=== PATIENT | female | born 1940 | race Caucasian/White ===

== ENCOUNTER 2019-01-18 14:54 | Emergency (ER) | payer MEDICAID, MEDICARE, OTHER ==
[~2019-01-18] VITALS: Ht 149.9 cm; Wt 66.3 kg
[~2019-01-18 14:54] MED LIST: [UNRECOGNIZED DRUG - REMARK]
[2019-01-18 14:59] VITALS: Ht 149.9 cm; Wt 66.3 kg
[2019-01-18] MEDS ORDERED: KETOROLAC 30 MG INJ IM STA (15:56)
--- NOTE | 2019-01-18 16:05 | ERD ---
ER Documentation Chief Complaint Chief Complaint GROUND LEVEL FALL HIT HEAD. NO KO. AMBULATORY. NO NV NOTED. A&OX4 HPI 78-year-old female who with past medical history of hypertension and diabetes who presents status post ground-level fall. Was walking in her neighborhood when she thinks she tripped and fell. Denies any preceding dizziness or headache. No previous history of similar falls. Sustained injury to forehead with large hematoma. Also with complaint of right knee pain. Was able to get up to standing position on her own. She denies LOC or any other injuries. No complaint of back pain or neck pain. Time of examination patient with large hematoma on forehead but otherwise alert and oriented x3 with unremarkable neuro examination. Able to stand up and bear weight on both legs take more than 4 steps. ROS All systems reviewed and are negative except as per history of present illness. Medications Home Meds Active Scripts Tramadol HCl (Tramadol HCl) 50 Mg Tablet, 50 MG PO Q6, #7 TAB Prov:SERAFIN SHAH PA-C 01/18/19 Acetaminophen* (Tylophen*) 500 Mg Capsule, 1 CAP PO Q6H PRN for PAIN AND OR ELEVATED TEMP, #20 CAP Prov:SERAFIN SHAH PA-C 01/18/19 Reported Medications [Unk] No Conflict Check 01/28/13 [Unk Names] No Conflict Check 01/28/13 Allergies Allergies: Coded Allergies: Penicillins (Verified Allergy, Intermediate, face swelling, 01/18/19) PMhx/Soc History of Surgery: Yes (LAPARATOMY) Hx Neurological Disorder: No Hx Psychiatric Problems: No Hx Miscellaneous Medical Probl: No Hx Alcohol Use: No Hx Substance Use: No Hx Tobacco Use: No FmHx Family History: diabetes Physical Exam Vitals Vital Signs Date Temp Pulse Resp B/P (MAP) Pulse Ox O2 O2 Flow FiO2 Time Delivery Rate 01/18/19 97.8 66 19 153/70 99 14:59 (97) Physical Exam I have reviewed the triage vital signs. Const: Well nourished, well developed, appears stated age Eyes: PERRL, no conjunctival injection HENT: NCAT, Neck supple without meningismus, large hematoma to forehead, no bleeding, tender CV: RRR, Warm, well-perfused extremities RESP: CTAB, Unlabored respiratory effort GI: soft, non-tender, non-distended, no masses MSK: No gross deformities appreciated, no paraspinal tenderness, R knee no erythema or swelling, full ROM, SILT throughout b/l LE, 5/5 strength throughout Skin: Warm, dry. No rashes Neuro: grossly non focal, able to ambulate without issue Neuro: M/S: Alert and oriented Face: EOMI, face and pharynx with normal sensation and function Motor: Normal strength throughout Sensation: Normal sensation throughout Speech: Normal Cerebel: Normal coordination Normal gait Normal finger to nose DTR: 2+ and symmetric upper/lower extremities Psych: Appropriate mood and affect. Results 24 hrs Current Medications Medications Dose Sig/Branden Start Time Status Last (Trade) Ordered Route PRN Stop Time Admin Dose Reason Admin Ketorolac 30 mg ONCE STAT 01/18/19 DC 01/18/19 Tromethamine IM 15:56 16:04 (Toradol) 01/18/19 15:59 Procedures/MDM 78-year-old female who presents status post ground-level fall sustaining injuries to the head as well as the right knee. CT scan of the brain without a cute findings. Right knee x-ray without findings of acute fracture. Patient is alert and oriented and neurovascularly intact. Hemodynamically stable. She is able to ambulate more than 4 steps without significant difficulty. Given exam and results of emergency room workup I doubt she requires any further emergent evaluation or treatment. She is discharged with strict return precautions. ED course: CT of head without acute findings, right knee x-ray without fracture, pain control. We will discharge with appropriate pain control. PMD follow-up and strict return precautions. Instructed patient to return to ED if she develops any concerning neurological symptoms or symptoms such as nausea vomiting or persistent headache. Departure Condition: Stable Patient Instructions: Fall, Mechanical SERAFIN SHAH PA-C Jan 18, 2019 16:05
[2019-01-18] MEDS ORDERED: ACET500C5 PO (16:51)
[2019-01-18] MEDS ORDERED: TRAM50TA2 PO (16:51)
[2019-01-18 17:16] VITALS: BP 172/77; PULSE 57; RESP 15
== END 2019-01-18 17:18 | disposition home or self-care (01) ==
LOC: FTE 14:54
DX: S09.90XA Unspecified injury of head, initial encounter (principal); S89.91XA Unspecified injury of right lower leg, initial encounter; I10 Essential (primary) hypertension; E11.9 Type 2 diabetes mellitus without complications; W18.39XA Other fall on same level, initial encounter; Y92.9 Unspecified place or not applicable
CPT/HCPCS: 70450; 73562; 96372; 99285; J1885